=== PATIENT | female | born 1945 | race Caucasian/White ===

== ENCOUNTER 2018-10-24 06:10 | Day surgery (SDC) | payer OTHER, BC ==
[2018-10-19 11:54] VITALS: BMI 32.3
[2018-10-24] MEDS ORDERED: PROPOFOL 20 ML ONE ×2 (06:52)
[2018-10-24] MEDS ORDERED: MIDAZOLAM HCL 2 MG/2 ML SINGLE DOSE VIAL ONE (06:52)
[2018-10-24] MEDS ORDERED: ERYTHROMYCIN 0.5% OPHTHALMIC OINTMENT 3.5 GM TUBE ONE (07:09)
[2018-10-24] MEDS ORDERED: TETRACAINE 0.5% OPHTH SOLN 2 ML BOTTLE ONE (07:09)
[2018-10-24] MEDS ORDERED: BUPIVACAINE HCL/PF 0.5% (5MG/ML) 10 ML VIAL ONE (07:10)
[2018-10-24] MEDS ORDERED: POVIDONE-IODINE 5% OPHTHALMIC PREP 30 ML SOLUTION ONE (07:10)
[2018-10-24] MEDS ORDERED: LIDOCAINE 1%/EPI 1:100000 (20 ML MULTI DOSE VIAL) ONE (07:10)
[2018-10-24] MEDS ORDERED: ceFAZolin SODIUM 1 GM VIAL ONE (07:47)
[2018-10-24] MEDS ORDERED: DEXAMETHASONE SOD PHOSPHATE 4 MG/1 ML VIAL ONE (07:56)
[2018-10-24] MEDS ORDERED: ONDANSETRON 4 MG/2 ML VIAL ONE (07:56)
[2018-10-24] MEDS ORDERED: ONDANSETRON 4 MG/2 ML VIAL IVPUSH PRN (08:17)
[2018-10-24] MEDS ORDERED: LACTATED RINGERS SOLUTION 1,000 ML IV SCH (08:30)
--- NOTE | 2018-10-24 08:50 | OP ---
DATE OF OPERATION: 10/24/2018 PREOPERATIVE DIAGNOSIS: Ptosis, left upper lid, with visual obstruction. POSTOPERATIVE DIAGNOSIS: Ptosis, left upper lid, with visual obstruction. PROCEDURE: Roach muscle resection, left upper lid. SURGEON: Kortney Arauz MD ANESTHESIA: Local with sedation. COMPLICATONS: None. ESTIMATED BLOOD LOSS: Less than 1 mL. OPERATION REPORT: Patient was brought to the operating room, placed on the operating room table. Vital signs monitored by Anesthesia. Tetracaine was placed in both eyes. Time-out was performed. Intravenous sedation was administered, and then, 2% Xylocaine with 1:100,000 epinephrine was injected for a total of 0.5 mL in the central subcutaneous area of the left upper lid, the lid was levered, and then, similar amount was given subconjunctivally at the top of the central tarsus. Massage was applied for hemostasis. The patient was prepped and draped in the usual sterile fashion exposing both eyes. Right eye was manually closed. The 4-0 silk traction suture was placed in the central lid margin. The lid was everted over Desmarres retractor, and 4.1 to 4.2 mm from the top of the central tarsus, a vanesa was placed, and 7 mm nasal and temporal to this, 2 additional boland were placed. A 6-0 silk suture was then run subconjunctivally in each of the 3 boland. The conjunctiva was elevated from the overlying levator by tenting it up with a 0.3 forceps, and then the 6-0 silk suture was used to elevate the conjunctiva in a 4-pronged fashion. The incorporated tissues doubled over would t 8.25 to 8.5 mm. This was incorporated into the Putterman clamp. Then, a 5-0 double-armed plain suture was run from temporal to nasal 1.5 mm away from the clamp inside the incorporated tissue, and the clamp was then excised with a 15 blade being careful not to cut the 5-0 plain suture, and then, the 5-0 plain suture was run back from nasal to temporal in a mattress fashion, and each of the temporal arms were then placed through the conjunctiva and passed through the full-thickness eyelid temporally. The skin had been tented away from the clamp initially before running the suture to ensure there was no incorporation of levator with the skin. At this point, the suture was tied. The lid was everted demonstrating good closure of the defect with no laxity on the suture. The suture was tied on the external surface. Erythromycin ointment was placed in the eye and on the suture, and the patient was taken to the recovery room in stable condition. The traction sutures were removed. KORTNEY ARAUZ M.D. [id number]
[2018-10-24] MEDS ORDERED: ERYTHROMYCIN 0.5% OPHTHALMIC OINTMENT 3.5 GM TUBE OS ONE (10:00)
[2018-10-24 11:10] VITALS: TEMP 98.2
[2018-10-24 11:12] VITALS: BP 133/77; PULSE 64
--- NOTE | 2018-10-26 15:30 | PATH ---
Surgical Pathology Report Patient Name: TIFFANY GARNETT [facility]. Rec. #: [id number] /Age/Gender: 1945 (Age: 73) / F Account: [id number] Location: [facility] AMBULATORY Taken: 10/24/2018 Received: 10/24/2018 Reported: 10/26/2018 Physicians: Jose Miguel Strong Specimen(s) Received LEFT UPPER EYELID Clinical History Ptosis left upper eyelid Final Diagnosis EYELID, LEFT UPPER, PTOSIS REPAIR: EYELID TISSUE SHOWING CHRONIC INFLAMMATION AND FIBROSIS. Electronically Signed Kassandra Moses M.D. Gross Description Received in formalin labeled "left upper eyelid," is a 1.4 x 0.2 x 0.1 cm peterson, elliptical portion of peterson tissue. The base is inked blue and the specimen is sectioned and entirely submitted in one cassette. /10/25/2018 [facility]10/25/2018
== END 2018-10-24 11:00 | disposition home or self-care (01) ==
LOC: FASU 06:10
PROVIDERS: ATTEND Ophthalmology
PROC: 08BP0ZZ Excision of Left Upper Eyelid, Open Approach (ICD-10-PCS; principal; 2018-10-24 07:44)
DX: H02.402 Unspecified ptosis of left eyelid (principal)
CPT/HCPCS: 82962; 88304-TC; 94760